=== PATIENT | male | born 1960 | race Caucasian/White ===

== ENCOUNTER → 2016-12-03 | Day surgery (SDC) | payer OTHER ==
[~2016-12-03] MED LIST: ALLEGRA PO; AMITRYPTYLINE PO; ANTIHISTAMINE; CARVEDILOL6.25 MG PO; EC-NAPROSYN500 MG PO; EFFEXOR37.5 MG PO; FLEXERIL PO; FLEXERIL10 MG; FLEXERIL10 MG PO; LORTAB 5/500 TA1 TA1 PO; MELATONIN3 MG PO; MELOXICAM15 MG PO; METHOCARBAMOL500 MG PO; MOTRIN600 MG PO; PREDNISONE PO; SIMVASTATIN20 MG PO; TRAZODONE HCL100 MG PO; VICODIN 5/1 TAB 5/50; VICODIN 5/1 TAB 5/50 PO; VITAMIN D250000 UNIT PO; [UNRECOGNIZED DRUG - OTHER]
--- NOTE | ~2016-12-03 | OR ---
Unit #: [id number] #: [id number] Patient: BALDO PUENTE [id number] [address] [address] [id number] MR#: [id number] NAME: BALDO PUENTE ROOM: Date of Procedure: 12/03/2016 Admission Date: 12/03/2016 Surgeon: Jered Sommer M.D. : 1960 Attending Physician: Jered Sommer M.D. Primary Care Physician: Tamir Somers M.D. OPERATIVE REPORT PROCEDURE PERFORMED Colonoscopy to cecum. INDICATIONS FOR PROCEDURE A 55-year-old gentleman, average risk for colorectal cancer. MEDICATIONS Monitored anesthesia. POSTOPERATIVE FINDINGS 1. Normal colon exam. Good prep. No polyps, masses, or colitis. 2. Large internal and external hemorrhoids. PLAN Repeat colonoscopy in 10 years. Consider surgery for hemorrhoids. DESCRIPTION OF PROCEDURE The patient was explained of the procedure risks and benefits along with risks and benefits of anesthesia. He was brought to the endoscopy room. Propofol anesthesia was given. Rectal exam was done, which was normal. Colonoscope was lubricated, passed up the rectum, advanced under direct vision all the way to cecum. Cecum was identified by ileocecal valve and appendiceal orifice. Prep was good. No polyps, masses, or colitis seen. I retroflexed in the rectum, internal hemorrhoids noted. Gently, the scope was pulled out. He tolerated it well. No major complications were seen. Dictated by... Francisco Gracia/ethan TD: 12/03/2016 16:48 JOB #: [id number] Unit #: [id number] #: [id number] Patient: BALDO PUENTE OPERATIVE REPORT Page 1 of 1 X Jered Sommer MD X PROCEDURE OPERATIVE NOTE
== END | disposition home or self-care (01) ==
LOC: COPS 09:27
DX: Z12.11 Encounter for screening for malignant neoplasm of colon (principal); K64.8 Other hemorrhoids; I10 Essential (primary) hypertension; K64.4 Residual hemorrhoidal skin tags; F17.200 Nicotine dependence, unspecified, uncomplicated; Z79.899 Other long term (current) drug therapy; Z98.890 Other specified postprocedural states
CPT/HCPCS: J2250